=== PATIENT | female | born 1990 | race Caucasian/White ===

== ENCOUNTER 2021-06-06 12:35 | Emergency (ER) | payer SELFPAY ==
[~2021-06-06] VITALS: Ht 165.1 cm; Wt 73.0 kg
[2021-06-06] MEDS ORDERED: HYDROCODONE/ACETAMINOPHEN 5/325MG TABLET PO ONE (14:00)
[2021-06-06 15:49] LABS: CHLORIDE 107 mEq/L (98-107)
[2021-06-06 15:53] LABS: BASOPHILS % 0.3 % (0.0-2.0); EOSINOPHILS % 1.4 % (0.0-5.0); HEMATOCRIT. 40.2 % (36.0-48.0); HEMOGLOBIN. 14.4 g/dL (12.0-16.0); LYMPHOCYTES % 31.5 % (20.0-50.0); MEAN CORPUSCULAR HEMOGLOBIN 30.3 pg (28.0-32.0); MEAN CORPUSCULAR VOLUME 84.6 fL (81.0-99.0); MONOCYTES % 7.6 % (2.0-8.0); NEUTROPHILS % 59.2 % (40.0-76.0); RED BLOOD CELL COUNT 4.75 mill/uL (4.2-5.4); RED CELL DISTRIBUTION WIDTH 13.5 % (11.6-14.6)
[2021-06-06] MEDS ORDERED: POTASSIUM CHLORIDE 20MEQ TABLET SR PO NR (17:30)
[2021-06-07] MEDS ORDERED: LORAZEPAM 2MG/ML CPJ IM ONE ×3 (02:45→13:30)
[2021-06-07] MEDS ORDERED: OLANZAPINE 10 MG/VIAL IM ONE (02:45)
[2021-06-07] MEDS ORDERED: DIPHENHYDRAMINE 50MG/ML VIAL IM ONE (02:45)
[2021-06-07 07:11] LABS: HCG SCREEN NEGATIVE
[2021-06-07 09:10] LABS: *BARBITURATES SCREEN URINE NEGATIVE (NEGATIVE); *COCAINE SCREEN URINE NEGATIVE (NEGATIVE); METHADONE URINE SCREEN NEGATIVE (NEGATIVE)
[2021-06-07 09:11] LABS: PHENCYCLIDINE URINE SCREEN NEGATIVE (NEGATIVE)
[2021-06-07 09:16] LABS: *AMPHETAMINES SCREEN URINE PRESUMTIVE POSITIVE (NEGATIVE)
[2021-06-07 09:17] LABS: *BENZODIAZEPINES SCREEN URINE PRESUMTIVE POSITIVE (NEGATIVE); CANNABINOID URINE SCREEN PRESUMTIVE POSITIVE (NEGATIVE); OPIATES URINE SCREEN PRESUMTIVE POSITIVE (NEGATIVE)
[2021-06-07] MEDS ORDERED: HALOPERIDOL LACTATE 5MG/ML VIAL IM PRN (09:30)
[2021-06-07] MEDS: DIPHENHYDRAMINE 50MG/ML VIAL IM PRN (09:35)
[2021-06-07] MEDS: LORAZEPAM 2MG/ML CPJ IM PRN (09:35)
[2021-06-07] MEDS ORDERED: HALOPERIDOL LACTATE 5MG/ML VIAL IM ONE ×2 (09:45→13:30)
[2021-06-07] MEDS ORDERED: DIPHENHYDRAMINE 50MG/ML VIAL IM STA (13:29)
[2021-06-07] MEDS: CEPHALEXIN 250MG CAPSULE PO SCH ×2 (14:05→20:45)
[2021-06-07] MEDS: ZIPRASIDONE MESYLATE 20MG/VIAL IM ONE ×2 (14:45→15:22)
[2021-06-08] MEDS: LORAZEPAM 2MG/ML CPJ IM PRN ×2 (04:59→18:08)
[2021-06-08] MEDS: DIPHENHYDRAMINE 50MG/ML VIAL IM PRN ×2 (05:00→18:07)
[2021-06-08] MEDS: CEPHALEXIN 250MG CAPSULE PO SCH ×2 (06:00)
[2021-06-09] MEDS: CEPHALEXIN 250MG CAPSULE PO SCH ×3 (07:32→11:26)
[2021-06-09] MEDS ORDERED: HALOPERIDOL LACTATE 5MG/ML VIAL IM PRN (14:45)
[2021-06-09] MEDS: DIPHENHYDRAMINE 50MG/ML VIAL IM PRN (17:55)
[2021-06-09] MEDS: LORAZEPAM 2MG/ML CPJ IM PRN (17:55)
[2021-06-09] MEDS ORDERED: CEPHALEXIN 250MG CAPSULE PO SCH (18:00)
[2021-06-10] MEDS: CEPHALEXIN 250MG CAPSULE PO SCH ×4 (00:45→18:00)
[2021-06-10] MEDS: LORAZEPAM 2MG/ML CPJ IM PRN (14:46)
[2021-06-10] MEDS: DIPHENHYDRAMINE 50MG/ML VIAL IM PRN (14:46)
[2021-06-10] MEDS ORDERED: ZIPR40CA2 MT (19:42)
[2021-06-10 20:37] VITALS: BP 110/80
== END 2021-06-10 19:34 | disposition home or self-care (01) ==
LOC: ER 13:41
DX: T85.49XA Other mechanical complication of breast prosthesis and implant, initial encounter (principal); F23 Brief psychotic disorder; R45.6 Violent behavior; R41.82 Altered mental status, unspecified; F15.10 Other stimulant abuse, uncomplicated; F11.10 Opioid abuse, uncomplicated; F13.10 Sedative, hypnotic or anxiolytic abuse, uncomplicated; F12.10 Cannabis abuse, uncomplicated; R45.1 Restlessness and agitation; Z20.822 Contact with and (suspected) exposure to COVID-19; Z75.1 Person awaiting admission to adequate facility elsewhere; Z73.6 Limitation of activities due to disability; Z59.0 Homelessness; Y82.8 Other medical devices associated with adverse incidents; Y92.89 Other specified places as the place of occurrence of the external cause
CPT/HCPCS: 36415; 70450; 76641; 80053; 81025; 85025; 96372; 99285; J1200; J2060; U0003